=== PATIENT | female | born 1975 | race Two or more races ===

== ENCOUNTER 2022-10-15 12:21 | Emergency (ER) | payer SELFPAY ==
[~2022-10-15] VITALS: Ht 152.4 cm; Wt 87.3 kg
[2022-10-15 15:11] VITALS: BP 115/70
[2022-10-15] MEDS ORDERED: DILT120T8 PO (15:33)
== END 2022-10-15 15:29 | disposition home or self-care (01) ==
LOC: ER 12:21
DX: I47.1 Supraventricular tachycardia (principal); Z76.0 Encounter for issue of repeat prescription; Z79.899 Other long term (current) drug therapy

== ENCOUNTER 2023-01-04 19:26 | Emergency (ER) | payer OTHER ==
[~2023-01-04] VITALS: Ht 152.4 cm; Wt 90.0 kg
[~2023-01-04 19:26] MED LIST: DILT120T8 PO
[2023-01-04 19:41] VITALS: BP 116/93; PULSE 71; RESP 14; O2SAT 96
[2023-01-04 20:02] LABS: Urine Bacteria FEW /hpf (None Seen); Urine Blood TRACE /uL (Negative); Urine Clarity HAZY (Clear); Urine Color Colorless (Yellow); Urine Hyaline Cast FEW /lpf (0 - 2); Urine Mucus FEW (None Seen); Urine Protein, UAD TRACE (Negative); Urine Specific Gravity 1.016 (1.001-1.035); Urine Urobilinogen Normal (Negative); Urine WBC 6 /hpf (0 - 5); Urine pH 6.5 (5.0-8.0)
[2023-01-04] MEDS ORDERED: KETOROLAC TROMETH 60MG/2ML VIAL IM ONE (23:15)
[2023-01-04] MEDS ORDERED: IBUP-1456 PO (23:30)
[2023-01-04] MEDS ORDERED: CYCL-837 PO (23:30)
[2023-01-04] MEDS ORDERED: SULF800T23 PO (23:30)
== END 2023-01-04 23:45 | disposition home or self-care (01) ==
LOC: ER 19:28
DX: S39.012A Strain of muscle, fascia and tendon of lower back, initial encounter (principal); N39.0 Urinary tract infection, site not specified; Z79.1 Long term (current) use of non-steroidal anti-inflammatories (NSAID); Z79.899 Other long term (current) drug therapy; X50.0XXA Overexertion from strenuous movement or load, initial encounter; Y93.89 Activity, other specified; Y92.89 Other specified places as the place of occurrence of the external cause; Y99.8 Other external cause status
CPT/HCPCS: 81001; 96372; 99283; J1885